=== PATIENT | male | born 2000 | race Caucasian/White ===

== ENCOUNTER 2019-11-13 15:48 | Emergency (ER) | payer SELFPAY ==
--- NOTE | 2019-11-13 16:07 | EDM.PDOC ---
ED HPI GENERAL MEDICAL PROBLEM - General Chief Complaint: Gastrointestinal Problem Stated Complaint: SICK Time Seen by Provider: 11/13/19 16:17 Source of Information: Reports: Patient, Other (3 friends in room initially answer all questions for pt.) - History of Present Illness Onset Date: 11/12/19 Duration: Getting Worse Location: Reports: Abdomen Quality: Reports: Stabbing Severity: Severe Associated Symptoms: Reports: Nausea/Vomiting, Other (Diarrhea) Abdomen Pain Score (Numeric/FACES): 8 - Related Data Allergies Allergy/AdvReac Type Severity Reaction Status Date / Time No Known Allergies Allergy Verified 11/13/19 16:09 Home Meds: Home Meds NK [No Known Home Meds] 11/13/19 [History] ED ROS GENERAL - Review of Systems Review Of Systems: See Below Constitutional: Reports: Malaise. Denies: Fever, Chills Respiratory: Reports: Other (hyperventilation) GI/Abdominal: Reports: Abdominal Pain, Nausea, Vomiting Neurological: Denies: Confusion Psychiatric: Reports: Agitation, Anxiety ED EXAM, GI/ABD - Physical Exam Exam: See Below Text/Narrative:: When I initially enter room the pt. is lying on his L side curled in a ball with his arms over his head and face. He will not acknowledge my or roll onto his back for exam. Exam Limited By: Uncooperative General Appearance: Alert, Moderate Distress Eyes: Bilateral: Normal Appearance Ears: Normal Canal, Normal TMs Nose: Normal Inspection Throat/Mouth: Other (mildly dry gums) Head: Atraumatic, Normocephalic Neck: Normal Inspection Respiratory/Chest: No Respiratory Distress, Lungs Clear, Normal Breath Sounds Cardiovascular: No Edema, No Murmur, Tachycardia GI/Abdominal Exam: No Organomegaly, Rigid, Abnormal Bowel Sounds (bowel sounds absent) Back Exam: Full Range of Motion Extremities: Normal Inspection, No Pedal Edema Neurological: Alert Psychiatric: Anxious, Tearful, Other (perseverates "I want water" in spite of repeated explanations as to why we don't want him to drink) Skin Exam: Dry, Normal Color Course - Vital Signs Text/Narrative:: In light of rigid abdomen, elevated WBC, but no Dx on CT, I have STRONGLY recommended to pt he come into hospital for observation. Last Recorded V/S: Last Vital Signs Temp 37.2 C 03/03/20 17:40 Pulse 89 11/13/19 18:42 Resp 18 11/13/19 18:42 BP 120/79 11/13/19 18:42 Pulse Ox 99 11/13/19 18:42 - Orders/Labs/Meds Orders: Active Orders 24 hr Category Date Time Status Iopamidol [Isovue-300 (61%)] Med 11/13/19 17:00 Active 100 ml IV . DIRECTED Sodium Chloride 0.9% [Normal Saline] 1,000 ml Med 11/13/19 16:45 Active IV ASDIRECTED Sodium Chloride 0.9% [Normal Saline] 80 ml Med 11/13/19 17:00 Active IV ASDIRECTED Medication Orders Sodium Chloride (Normal Saline) 1,000 mls @ 125 mls/hr IV ASDIRECTED JASKARAN Last Admin: 11/13/19 17:59 Dose: 125 mls/hr Sodium Chloride (Normal Saline) 80 mls @ 3 mls/sec IV ASDIRECTED JASKARAN Last Admin: 11/13/19 17:00 Dose: 3 mls/sec Iopamidol (Isovue-300 (61%)) 100 ml IV . DIRECTED JASKARAN Last Admin: 11/13/19 17:00 Dose: 100 ml Labs: Laboratory Tests 11/13/19 11/13/19 11/13/19 Range/Units 16:38 16:38 16:41 WBC 17.2 H (4.5-11.0) K/uL RBC 5.97 H (4.30-5.90) M/uL Hgb 17.1 H (12.0-15.0) g/dL Hct 50.7 (40.0-54.0) % MCV 85 (80-98) fL MCH 29 (27-31) pg MCHC 34 (32-36) % Plt Count 283 (150-400) K/uL Sodium (140-148) mmol/L Potassium (3.6-5.2) mmol/L Chloride (100-108) mmol/L Carbon Dioxide (21-32) mmol/L Anion Gap (5.0-14.0) mmol/L BUN (7-18) mg/dL Creatinine (0.8-1.3) mg/dL Est Cr Clr Drug Dosing mL/min Estimated GFR (MDRD) (>60) Glucose (74-106) mg/dL Lactic Acid (0.4-2.0) mmol/L Calcium (8.5-10.1) mg/dL Total Bilirubin (0.2-1.0) mg/dL AST (15-37) U/L ALT (12-78) U/L Alkaline Phosphatase (46-116) U/L Total Protein (6.4-8.2) g/dL Albumin (3.4-5.0) g/dL Globulin (2.3-3.5) g/dL Albumin/Globulin Ratio (1.2-2.2) Urine Color [place] A (YELLOW) Urine Appearance Clear (CLEAR) Urine pH 6.5 (5.0-8.0) Ur Specific [place] 1.025 (1.008-1.030) Urine Protein 30 H (NEGATIVE) mg/dL Urine Glucose (UA) Negative (NEGATIVE) mg/dL Urine Ketones 40 H (NEGATIVE) mg/dL Urine Occult Blood Negative (NEGATIVE) Urine Nitrite Negative (NEGATIVE) Urine Bilirubin Small H (NEGATIVE) Urine Urobilinogen 0.2 (0.2-1.0) EU/dL Ur Leukocyte Esterase Negative (NEGATIVE) Urine RBC 0-5 (0-5) Urine WBC Not seen (0-5) Ur Epithelial Cells Not seen Amorphous Sediment Many Urine Bacteria Not seen Urine Mucus Not seen Urine Opiates Screen Negative (NEGATIVE) Ur Oxycodone Screen Negative (NEGATIVE) Urine Methadone Screen Negative (NEGATIVE) Ur Propoxyphene Screen Negative (NEGATIVE) Ur Barbiturates Screen Negative (NEGATIVE) Ur Tricyclics Screen Negative (NEGATIVE) Ur Phencyclidine Scrn Negative (NEGATIVE) Ur Amphetamine Screen Negative (NEGATIVE) U Methamphetamines Scrn Negative (NEGATIVE) Urine MDMA Screen Negative (NEGATIVE) U Benzodiazepines Scrn Negative (NEGATIVE) U Cocaine Metab Screen Negative (NEGATIVE) U Marijuana (THC) Screen Presumptive positive H (NEGATIVE) 11/13/19 11/13/19 Range/Units 16:41 16:41 WBC (4.5-11.0) K/uL RBC (4.30-5.90) M/uL Hgb (12.0-15.0) g/dL Hct (40.0-54.0) % MCV (80-98) fL MCH (27-31) pg MCHC (32-36) % Plt Count (150-400) K/uL Sodium 143 (140-148) mmol/L Potassium 4.3 (3.6-5.2) mmol/L Chloride 105 (100-108) mmol/L Carbon Dioxide 22 (21-32) mmol/L Anion Gap 15.8 H (5.0-14.0) mmol/L BUN 21 H (7-18) mg/dL Creatinine 0.9 (0.8-1.3) mg/dL Est Cr Clr Drug Dosing 117.22 mL/min Estimated GFR (MDRD) > 60 (>60) Glucose 108 H (74-106) mg/dL Lactic Acid 2.6 H (0.4-2.0) mmol/L Calcium 9.3 (8.5-10.1) mg/dL Total Bilirubin 1.6 H (0.2-1.0) mg/dL AST 16 (15-37) U/L ALT 25 (12-78) U/L Alkaline Phosphatase 109 (46-116) U/L Total Protein 8.4 H (6.4-8.2) g/dL Albumin 4.8 (3.4-5.0) g/dL Globulin 3.6 H (2.3-3.5) g/dL Albumin/Globulin Ratio 1.3 (1.2-2.2) Urine Color (YELLOW) Urine Appearance (CLEAR) Urine pH (5.0-8.0) Ur Specific [place] (1.008-1.030) Urine Protein (NEGATIVE) mg/dL Urine Glucose (UA) (NEGATIVE) mg/dL Urine Ketones (NEGATIVE) mg/dL Urine Occult Blood (NEGATIVE) Urine Nitrite (NEGATIVE) Urine Bilirubin (NEGATIVE) Urine Urobilinogen (0.2-1.0) EU/dL Ur Leukocyte Esterase (NEGATIVE) Urine RBC (0-5) Urine WBC (0-5) Ur Epithelial Cells Amorphous Sediment Urine Bacteria Urine Mucus Urine Opiates Screen (NEGATIVE) Ur Oxycodone Screen (NEGATIVE) Urine Methadone Screen (NEGATIVE) Ur Propoxyphene Screen (NEGATIVE) Ur Barbiturates Screen (NEGATIVE) Ur Tricyclics Screen (NEGATIVE) Ur Phencyclidine Scrn (NEGATIVE) Ur Amphetamine Screen (NEGATIVE) U Methamphetamines Scrn (NEGATIVE) Urine MDMA Screen (NEGATIVE) U Benzodiazepines Scrn (NEGATIVE) U Cocaine Metab Screen (NEGATIVE) U Marijuana (THC) Screen (NEGATIVE) Meds: Medications Generic Name Dose Route Start Last Admin Trade Name Freq PRN Reason Stop Dose Admin Sodium Chloride 1,000 mls @ 125 mls/hr 11/13/19 16:45 11/13/19 17:59 Normal Saline IV 125 mls/hr ASDIRECTED JASKARAN Administration Sodium Chloride 80 mls @ 3 mls/sec 11/13/19 17:00 11/13/19 17:00 Normal Saline IV 3 mls/sec ASDIRECTED JASKARAN Administration Iopamidol 100 ml 11/13/19 17:00 11/13/19 17:00 Isovue-300 (61%) IV 100 ml . DIRECTED JASKARAN Administration Discontinued Medications Generic Name Dose Route Start Last Admin Trade Name Freq PRN Reason Stop Dose Admin Hydromorphone HCl 0.5 mg 11/13/19 17:30 11/13/19 17:36 Dilaudid IVPUSH 11/13/19 17:31 0.5 mg ONETIME ONE Administration Sodium Chloride 1,000 mls @ 999 mls/hr 11/13/19 16:36 11/13/19 16:42 Normal Saline IV 11/13/19 17:36 999 mls/hr .BOLUS ONE Administration Prochlorperazine Edisylate 5 mg 11/13/19 16:37 11/13/19 16:43 Compazine IVPUSH 11/13/19 16:38 5 mg ONETIME ONE Administration Departure - Departure Time of Disposition: 18:55 Disposition: Against Medical Advice 07 Condition: Fair Clinical Impression: Abdominal pain - Discharge Information Instructions: Abdominal Pain, Adult, [id number] Referrals: PCP,None [Primary Care Provider] - Forms: ED Department Discharge Additional Instructions: Followup with your primary clinician as soon as possible. You are leaving against the advice of the ED physician. If you experience worsening symptoms, return to this ED. Sepsis Event Note - Focused Exam Vital Signs: Vital Signs Temp Pulse Resp BP Pulse Ox 11/13/19 18:42 89 18 120/79 99 11/13/19 17:40 37.2 C 92 16 117/67 99 11/13/19 16:07 35.6 C L 105 H 18 111/70 96 Date Exam was Performed: 11/13/19 Time Exam was Performed: 18:52 - My Orders Last 24 Hours: My Active Orders 11/13/19 16:45 Sodium Chloride 0.9% [Normal Saline] 1,000 ml IV ASDIRECTED 11/13/19 17:00 Iopamidol [Isovue-300 (61%)] 100 ml IV . DIRECTED Sodium Chloride 0.9% [Normal Saline] 80 ml IV ASDIRECTED - Assessment/Plan Last 24 Hours: My Active Orders 11/13/19 16:45 Sodium Chloride 0.9% [Normal Saline] 1,000 ml IV ASDIRECTED 11/13/19 17:00 Iopamidol [Isovue-300 (61%)] 100 ml IV . DIRECTED Sodium Chloride 0.9% [Normal Saline] 80 ml IV ASDIRECTED
[2019-11-13] MEDS: Sodium Chloride 0.9% 1,000 ML IV ONE (16:42)
[2019-11-13] MEDS: Prochlorperazine 10 MG/2 ML SDV IVPUSH ONE (16:43)
[2019-11-13] MEDS: Iopamidol 612 MG/ML 100 ML Bottle IV SCH (17:00)
[2019-11-13] MEDS: Sodium Chloride 0.9% 80 ML IV SCH (17:00)
[2019-11-13] MEDS: HYDROmorphone 0.5 MG/0.5 ML Syringe IVPUSH ONE (17:36)
--- NOTE | 2019-11-13 17:40 | CRLCT ---
INDICATION: Abdominal COMPARISON: None TECHNIQUE: CT examination of the abdomen and pelvis was performed following the uneventful intravenous administration of 1 cc of Isovue-300. Thin section axial images were obtained from the lung bases through the pubic symphysis. Oral contrast was not administered. Please note that all CT scans at this facility use dose modulation, iterative reconstruction, and/or weight-based dosing when appropriate to reduce radiation dose to as low as reasonably achievable. FINDINGS: LUNG BASES: The lung bases as visualized appear normal.The heart size is normal at the lung bases. LIVER/BILIARY SYSTEM:The liver is normal in size and configuration. There is no focal mass and there is no intra- or extra hepatic biliary ductal dilatation.The gall bladder appears normal. ADRENALS: Normal KIDNEYS, URETERS and BLADDER:There is a right renal cyst about 1.5 centimeters. The right kidney is otherwise unremarkable. SPLEEN:Normal appearance. PANCREAS: Appears normal. RETROPERITONEUM and MESENTERY: There is no mass, adenopathy or aortic aneurysm. GASTROINTESTINAL SYSTEM: There is no evidence of diverticulitis, colitis, mechanical obstruction, or appendicitis. The small bowel as visualized appears normal. PELVIS: No mass, adenopathy or free fluid. OSSEOUS STRUCTURES and ABDOMINAL WALL: There is an age-appropriate appearance of the osseous structures.No significant abdominal wall defect. OTHER: No free fluid or free air. IMPRESSION: The study is substantially limited due to a paucity of fat planes and lack of oral contrast. I see no visible etiology for abdominal pain. Incidental right renal cyst. Evaluation the upper abdomen and mid is also significantly limited due to motion artifact Please note that all CT scans at this facility use dose modulation, iterative reconstruction, and/or weight-based dosing when appropriate to reduce radiation dose to as low as reasonably achievable. Dictated by Chiki Camargo MD @ Nov 13 2019 5:28PM Signed by Dr. Chiki Camargo @ Nov 13 2019 5:38PM
[2019-11-13] MEDS: Sodium Chloride 0.9% 1,000 ML IV SCH (17:59)
== END 2019-11-13 19:05 | disposition home or self-care (01) ==
LOC: JP.ED 15:48
DX: R10.9 Unspecified abdominal pain (principal)
CPT/HCPCS: 36415; 74177; 80053; 80305; 81001; 83605; 85027; 96361; 96374; 96375; 99284; J0780; J1170; J7030; J7050; Q9967

== ENCOUNTER 2020-12-22 01:25 | Emergency (ER) | payer SELFPAY | END 2020-12-22 01:30 | disposition left against medical advice (07) | LOC: JP.ED 01:25 | DX: Z53.21 Procedure and treatment not carried out due to patient leaving prior to being seen by health care provider (principal) ==

== ENCOUNTER 2021-05-31 22:56 | Emergency (ER) | payer SELFPAY ==
--- NOTE | 2021-05-31 23:17 | EDM.PDOC ---
ED HPI GENERAL MEDICAL PROBLEM - General Chief Complaint: Respiratory Problem Stated Complaint: SOB, COUGH, RUNNY NOSE, SWEATING Time Seen by Provider: 05/31/21 23:10 Source of Information: Reports: Patient History Limitations: Reports: No Limitations - History of Present Illness INITIAL COMMENTS - FREE TEXT/NARRATIVE: Patient presents the emergency room today secondary to concern about continued symptoms that include runny nose nasal sinus congestion raspy throat/voice sore throat positive fevers and chills intermittent episodes of lightheaded headedness/dizziness denies any headache no nausea vomiting or diarrhea patient states that he came in the ER because symptoms have continued in nature and have not improved he denies any prior medical care. PMH/Meds--denies NKDA Tob--1ppd EtOH--occassional Drugs--daily marijuana user, at least in am & pm but sometimes more often Denies having had COVID infection nor has he had the immunization Duration: Week(s): (1+), Constant - Related Data Allergies Allergy/AdvReac Type Severity Reaction Status Date / Time No Known Allergies Allergy Verified 05/31/21 23:08 Home Meds: Home Meds NK [No Known Home Meds] 11/13/19 [History] Past Medical History - Past Health History Medical/Surgical History: Denies Medical/Surgical History Social & Family History - Caffeine Use Caffeine Use: Reports: Coffee, Energy Drinks, Soda ED ROS GENERAL - Review of Systems Review Of Systems: Comprehensive ROS is negative, except as noted in HPI. Constitutional: Reports: Fever, Chills, Malaise, Fatigue HEENT: Reports: Rhinitis, Sinus Problem (sinus/nasal congestion), Throat Pain Respiratory: Reports: Shortness of Breath, Wheezing Cardiovascular: Reports: No Symptoms Endocrine: Reports: No Symptoms GI/Abdominal: Reports: No Symptoms : Reports: No Symptoms Musculoskeletal: Reports: No Symptoms Skin: Reports: No Symptoms Neurological: Reports: Dizziness. Denies: Headache Psychiatric: Reports: No Symptoms Hematologic/Lymphatic: Reports: No Symptoms Immunologic: Reports: No Symptoms ED EXAM, GENERAL - Physical Exam Exam: See Below Exam Limited By: No Limitations General Appearance: Alert, WD/WN, Mild Distress (appears to not feel well, nontoxic in nature; no acute respiratory distress) Eye Exam: Bilateral Eye: EOMI, Normal Inspection, PERRL Ears: Normal External Exam, Normal Canal, Hearing Grossly Normal, Normal TMs Nose: Nasal Swelling, Nasal Drainage, Clear Rhinorrhea Throat/Mouth: Normal Inspection, Normal Oropharynx, Normal Voice, No Airway Compromise Head: Atraumatic, Normocephalic Neck: Normal Inspection, Supple, Non-Tender, Full Range of Motion Respiratory/Chest: No Respiratory Distress, No Accessory Muscle Use, Wheezing (course wheezing all jackson) Cardiovascular: Normal Peripheral Pulses, Regular Rate, Rhythm, No Edema, No Murmur Peripheral Pulses: 2+: Radial (L), Radial (R) GI/Abdominal: Normal Bowel Sounds, Soft, Non-Tender (Male) Exam: Deferred Rectal (Males) Exam: Deferred Back Exam: Normal Inspection, Full Range of Motion Extremities: Normal Inspection, Normal Range of Motion, Normal Capillary Refill Neurological: Alert, Oriented, Normal Cognition, No Motor/Sensory Deficits Psychiatric: Normal Affect, Normal Mood Skin Exam: Warm, Dry, Intact, Normal Color Course - Vital Signs Text/Narrative:: 0002--Chest 1V preliminary reading no acute process noted, final radiology reading pending. swabs for COVID, influenza, strep pending at this time 0035--received call from lab regarding + COVID results 0043--in room to d/w him today's ER results and recommendations in further home care for COVID infection. Was discussed with him that he would need to be on home quarantine self-isolation for the next 10 to 14 days. This means that he does not go out in public and he should not have anybody over to his house. Any close contacts or people that lives with him or that he lives with also need to observe the same quarantine. Provide him with an inhaler secondary to his wheezing that is intermittent in nature as on repeat exam his lungs are noted to be fairly clear in nature with just a very slight end expiratory wheeze on the left this does clear after coughing per his report was also discussed with him use of acetaminophen or ibuprofen as per label for any fevers chills body aches, importance of maintaining hydration that when he feels better that appetite will return patient verbalized understanding agree with plan of care ready for discharge Last Recorded V/S: Last Vital Signs Temp 97.1 F 05/31/21 23:46 Pulse 85 05/31/21 23:46 Resp 16 05/31/21 23:46 BP 129/86 05/31/21 23:46 Pulse Ox 96 05/31/21 23:46 - Orders/Labs/Meds Orders: Active Orders 24 hr Category Date Time Status Chest 1V Frontal [CR] Stat Exams 05/31/21 23:22 Taken CULTURE STREP A CONFIRMATION [RM] Stat Lab 05/31/21 23:46 Results STREP SCRN A RAPID W CULT CONF [RM] Stat Lab 05/31/21 23:46 Results Isolation [COMM] Routine Oth 05/31/21 23:22 Ordered Labs: Laboratory Tests 05/31/21 Range/Units 23:46 SARS-CoV-2 RNA (BIBI) Positive H (NEGATIVE) Departure - Departure Time of Disposition: 00:45 Disposition: Home, Self-Care 01 Condition: Good Clinical Impression: COVID-19, Tobacco abuse, Marijuana abuse - Discharge Information *PRESCRIPTION DRUG MONITORING PROGRAM REVIEWED*: Not Applicable *COPY OF PRESCRIPTION DRUG MONITORING REPORT IN PATIENT JOEL: Not Applicable Instructions: Steps to Quit Smoking, [id number], COVID-19 Frequently Asked Questions, How to Wear and Take Off Your Mask - [facility] (12/11/2020), 10 Things You Can Do to Manage Your COVID-19 Symptoms at Home - [facility] (03/12/2020) Referrals: PCP,None [Primary Care Provider] - Forms: ED Department Discharge Additional Instructions: As discussed you must home isolate/self quarantine for the next 10 to 14 days he will be released on June secondary to positive Covid infection. You may not go into any public place during this timeframe but you must remain in your home. You should not allow anyone that does not live with you to come into your home and you should attempt to maintain separation from those that do you you do live with such as remaining in your room. If you must leave your room it is strongly encouraged that you and those members that live in your household wear a mask at all times. Anyone that you have had close contact with in the last 5 to 7 days should have Covid testing completed in the next week. Anyone that you live with on a continuous basis/in the same household is recommended to observe home isolation self quarantine for the next 10 to 14 days and if they have not been tested they should be tested in order to determine their Covid status even if asymptomatic You may use acetaminophen (Tylenol) and/or ibuprofen (Motrin, Advil) for any fevers chills body aches or discomforts otherwise. You have been provided a prescription that you may obtain out of the [facility] in the ER waiting room for ondansetron (Zofran) this can be used for any nausea or vomiting as well as an albuterol inhaler that can be used for any shortness of breath wheezing or cough Handwashing and surface disinfection is important in your household, covering your mouth when coughing is extremely important to help decrease droplet spread. You have been provided a work excuse for the next 10 to 14 days. Should you have any further concerns or questions please contact your primary care clinicdo not go into a clinic without 1st notification that you are positive for Covid so that they may direct you into entrance and isolation procedures. If you have any worsening symptoms of concern return to the emergency room for further evaluation Sepsis Event Note (ED) - Focused Exam Vital Signs: Vital Signs Temp Pulse Resp BP Pulse Ox 05/31/21 23:46 97.1 F 85 16 129/86 96 05/31/21 23:03 97.1 F 85 16 129/86 96 - My Orders Last 24 Hours: My Active Orders 05/31/21 23:22 Chest 1V Frontal [CR] Stat Isolation [COMM] Routine 05/31/21 23:46 CULTURE STREP A CONFIRMATION [RM] Stat STREP SCRN A RAPID W CULT CONF [RM] Stat - Assessment/Plan Last 24 Hours: My Active Orders 05/31/21 23:22 Chest 1V Frontal [CR] Stat Isolation [COMM] Routine 05/31/21 23:46 CULTURE STREP A CONFIRMATION [RM] Stat STREP SCRN A RAPID W CULT CONF [RM] Stat
--- NOTE | 2021-06-01 10:13 | CR ---
CHEST: Portable 05/31/2021 and 11:50 PM CLINICAL HISTORY:SOB, wheeze COMPARISON:None FINDINGS: The heart size, pulmonary vascularity and hilar structures are normal. No infiltrate effusion or pneumothorax is seen. IMPRESSION: No acute cardiopulmonary process.
== END 2021-06-01 01:25 | disposition home or self-care (01) ==
LOC: JP.ED 22:56
DX: U07.1 COVID-19 (principal); F12.10 Cannabis abuse, uncomplicated; F17.210 Nicotine dependence, cigarettes, uncomplicated
CPT/HCPCS: 71045; 71045-26; 87081; 87804; 87804-59; 87880-QW; 99283-25; U0002

== ENCOUNTER 2022-02-11 16:25 | Emergency (ER) | payer SELFPAY | END 2022-02-11 17:35 | disposition home or self-care (01) | LOC: JP.ED 16:25 | DX: S62.354A Nondisplaced fracture of shaft of fourth metacarpal bone, right hand, initial encounter for closed fracture (principal); W55.22XA Struck by cow, initial encounter | CPT/HCPCS: 73130-26-RT; 73130-RT; 99283-25 ==